=== PATIENT | male | born 1975 | race Caucasian/White ===

== ENCOUNTER 2025-05-17 18:02 | Emergency (ER) | payer OTHER, BC ==
[~2025-05-17] VITALS: Ht 185.4 cm; Wt 89.6 kg
--- NOTE | 2025-05-17 19:28 | ELECTROCARDIOGRAPH REPORT ---
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
[2025-05-17] MEDS: ibuprofen tablet 400 MG TABLET PO ONE (19:35)
[2025-05-17] MEDS: orphenadrine citrate 60mg/2ml inj. IM ONE (19:36)
[2025-05-17] MEDS: morphine 4 MG/ML inj SYRINge IV ONE (19:36)
[2025-05-17] MEDS: ondansetron/PF 4mg/2ml inj IV ONE (19:36)
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
[2025-05-17 19:46] LABS: MEAN PLATELET VOLUME 7.9 FL (7.4-10.4); RED CELL DISTRIBUTION WIDTH 13.4 % (11.5-14.5)
[2025-05-17 20:00] LABS: CREATININE 1.41 MG/DL (0.60-1.10); TOTAL CARBON DIOXIDE 26.1 MMOL/L (24-32); eCRCL 72 ML/MIN; eGFR 53 ML/MIN
[2025-05-17] MEDS ORDERED: iohexol 300mg/ml 100ml inj. ONE (20:10)
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
[2025-05-17] MEDS ORDERED: IBUP-1984 PO (23:04)
[2025-05-17] MEDS ORDERED: ONDA-245 PO (23:04)
[2025-05-17] MEDS ORDERED: CYCL-1 PO (23:04)
[2025-05-17] MEDS ORDERED: HYDR-3965 PO (23:04)
[2025-05-17 23:08] VITALS: BP 125/80; PULSE 88; TEMP 96.8; O2SAT 99
[2025-05-17 23:14] VITALS: RESP 16
[2025-05-17] MEDS: HYDROcodone/acetaminophen 10/325mg tab PO ONE (23:14)
== END 2025-05-17 23:18 | disposition home or self-care (01) ==
LOC: ER 18:03
DX: S12.300A Unspecified displaced fracture of fourth cervical vertebra, initial encounter for closed fracture (principal); Z79.899 Other long term (current) drug therapy; V89.2XXA Person injured in unspecified motor-vehicle accident, traffic, initial encounter; Y93.89 Activity, other specified; Y92.89 Other specified places as the place of occurrence of the external cause; Y99.8 Other external cause status
CPT/HCPCS: 36415; 71045; 71260; 72100; 72170; 74177; 80048; 84484; 85025; 86885; 86900; 86901; 93005; 96372; 96374; 96375; 99285; J2270; J2360; J2405; Q9967